=== PATIENT | female | born 1950 | race Caucasian/White ===

== ENCOUNTER 2016-09-26 22:01 | Emergency (ER) | payer OTHER ==
[~2016-09-26] VITALS: Ht 160 cm; Wt 93.0 kg
[~2016-09-26 22:01] MED LIST: METO25TA3 PO; MULTTAB58 PO; PRT/20 PO; SIMV10TA2 PO
[2016-09-26 22:04] VITALS: TEMP 36.6; Ht 160 cm; Wt 93.0 kg
[2016-09-26 22:36] LABS: HEMATOCRIT 38.3 % (37-47); MEAN CELL VOLUME 89.3 fL (80-100); MEAN CORPUSCULAR HGB CONC 34.7 g/dl (32-36); MEAN PLATELET VOLUME 9.7 fL (7.4-10.4); PLATELET COUNT 147 K/uL (130-400); RED BLOOD COUNT 4.29 M/uL (4.2-5.4); WHITE BLOOD COUNT 5.21 K/uL (4.8-10.8)
--- NOTE | 2016-09-26 22:38 | DIAGNOSTIC IMAGING REPORT ---
CHEST ONE VIEW PORTABLE CLINICAL HISTORY: Altered mental status. Weakness. COMPARISON STUDY: Chest radiograph April 17, 2015. FINDINGS: Lung volumes are normal. There is no pneumothorax or pleural effusion. Pulmonary vascularity is normal. Cardiomediastinal silhouette is normal. The appearance of the chest is unchanged. IMPRESSION: No acute cardiopulmonary findings. Electronically signed by: Miles Ly M.D. 09/26/2016 10:37 PM Dictated Date/Time: 09/26/2016 10:36 PM
[2016-09-26 22:48] LABS: BUN/CREATININE RATIO 18.8 (10-20); CALCIUM 8.9 mg/dl (8.5-10.1); CREATININE 0.76 mg/dl (0.60-1.20)
--- NOTE | 2016-09-26 23:00 | DIAGNOSTIC IMAGING REPORT ---
CT OF THE HEAD WITHOUT CONTRAST CLINICAL HISTORY: Altered mental status. COMPARISON STUDY: Head CT August 12, 2011. CT DOSE: 614.27 mGy.cm TECHNIQUE: Helical axial images of the head were obtained without IV contrast. Automated exposure control was utilized for the study. A dose lowering technique was utilized adhering to the principles of ALARA. FINDINGS: No acute intracranial hemorrhage, midline shift or mass effect is present. Ventricular system is normal. Basilar cisterns are patent. There are no extra-axial collections. Bowles-white differentiation is maintained. There are no findings to suggest acute dural sinus thrombosis or acute territorial infarct. There is no calvarial fracture. Visualized portions of the sinuses and mastoid air cells are clear. IMPRESSION: No acute intracranial findings. Electronically signed by: Miles Ly M.D. 09/26/2016 10:59 PM Dictated Date/Time: 09/26/2016 10:55 PM
[2016-09-26 23:27] LABS: BASO % 0.4 %; BASO ABS # 0.02 K/uL (0-0.2); COMPLETE YES; EOS % 1.3 %; IG% 0.2 %; LYMPH % 52.2 %; LYMPH ABS # 2.72 K/uL (1.2-3.4); MONO % 9.2 %; NEUT % 36.7 %
--- NOTE | 2016-09-26 23:41 | EMERGENCY ROOM VISIT NOTE ---
History Report prepared by Leann: Nini Davis Under the Supervision of: Dr. Baldemar Brower D.O. First contact with patient: 22:06 Chief Complaint: NEURO SYMPTOMS Stated Complaint: FELT SOMETHING PULL IN FACE/NECK/FLANK W/PAIN History of Present Illness The patient is a 65 year old female who presents to the Emergency Room with complaints of persistent right sided headache starting around 2044 today. The patient was sitting in a chair when she reached over for a cup. At that moment, she felt a pulling sensation in her right cheek and down the right side of her body. After the pulling sensation, she felt a stinging and burning pain where the pulling had been. She then started having pain in the back of her neck on the right side and the right side of her head. She called [facility] who told her to present to the ED. She is feeling improved now, but still has some pain in her head and neck. She denies any chest pain or SOB. She felt that her throat might be closing up, but she notes that she has a history of acid reflux. She recently had a Mohs surgery on her right cheek. Source of History: patient, spouse/significant other Onset: 2044 Position: head Quality: ache Timing: other (persistent) Associated Symptoms: + neck pain, No chest pain, No SOB Note: Pt reports pulling sensation in her right cheek and right side. Review of Systems See HPI for pertinent positives & negatives. A total of 10 systems reviewed and were otherwise negative. Past Medical & Surgical Medical Problems: (1) HTN (hypertension) Surgical Problems: (1) Status post Mohs surgery Family History Diabetes mellitus Gallbladder disease Heart disease Hypertension Social History Smoking Status: Never Smoker Alcohol Use: none Drug Use: none Marital Status: Housing Status: lives with significant other Occupation Status: retired Current/Historical Medications Scheduled Metoprolol Succinate (Toprol Xl), 25 MG PO HS Multiple Vitamin (Multivitamin), 1 TAB PO DAILY Pantoprazole (Protonix), 20 MG PO DAILY Simvastatin (Zocor), 10 MG PO HS Allergies Coded Allergies: Codeine (Verified Allergy, Intermediate, hallucinations, 09/26/16) Chlorhexidine (Verified Allergy, Unknown, RASH, 09/26/16) Physical Exam Vital Signs Date Time Temp Pulse Resp B/P (MAP) Pulse Ox O2 Delivery O2 Flow Rate FiO2 09/26/16 23:33 67 19 111/81 98 Room Air 09/26/16 22:28 66 09/26/16 22:04 36.6 70 18 152/83 98 Room Air Physical Exam CONSTITUTIONAL/VITAL SIGNS: Reviewed / noted above. GENERAL: Non-toxic in appearance. INTEGUMENTARY: Warm, dry, and [place]. HEAD: Normocephalic. EYES: without scleral icterus or trauma. ENT/OROPHARYNX: clear and moist. LYMPHADENOPATHY/NECK: Is supple without lymphadenopathy or meningismus. RESPIRATORY: Lungs clear and equal. CARDIOVASCULAR: Regular rate and rhythm. GI/ABDOMEN: Soft and nontender. No organomegaly or pulsatile mass. No rebound or guarding. Normal bowel sounds. EXTREMITIES: Warm and well perfused. BACK: No CVA tenderness. NEUROLOGICAL: Intact without focal deficits. PSYCHIATRIC: normal affect. MUSCULOSKELETAL: Normally developed with good muscle tone. Medical Decision & Procedures ER Provider Diagnostic Interpretation: X ray results and stated below per my interpretation and radiology interpretation. Radiology results as stated below per my review and radiologist interpretation: CHEST ONE VIEW PORTABLE CLINICAL HISTORY: Altered mental status. Weakness. COMPARISON STUDY: Chest radiograph April 17, 2015. FINDINGS: Lung volumes are normal. There is no pneumothorax or pleural effusion. Pulmonary vascularity is normal. Cardiomediastinal silhouette is normal. The appearance of the chest is unchanged. IMPRESSION: No acute cardiopulmonary findings. Electronically signed by: Miles Ly M.D. 09/26/2016 10:37 PM Dictated Date/Time: 09/26/2016 10:[address] OF THE HEAD WITHOUT CONTRAST CLINICAL HISTORY: Altered mental status. COMPARISON STUDY: Head CT August 12, 2011. CT DOSE: 614.27 mGy.cm TECHNIQUE: Helical axial images of the head were obtained without IV contrast. Automated exposure control was utilized for the study. A dose lowering technique was utilized adhering to the principles of ALARA. FINDINGS: No acute intracranial hemorrhage, midline shift or mass effect is present. Ventricular system is normal. Basilar cisterns are patent. There are no extra-axial collections. Bowles-white differentiation is maintained. There are no findings to suggest acute dural sinus thrombosis or acute territorial infarct. There is no calvarial fracture. Visualized portions of the sinuses and mastoid air cells are clear. IMPRESSION: No acute intracranial findings. Electronically signed by: Miles Ly M.D. 09/26/2016 10:59 PM Dictated Date/Time: 09/26/2016 10:55 PM Laboratory Results 09/26/16 22:20 Red Blood Count 4.29, Mean Corpuscular Volume 89.3, Mean Corpuscular Hemoglobin 31.0, Mean Corpuscular Hemoglobin Concent 34.7, Mean Platelet Volume 9.7, Neutrophils (%) (Auto) 36.7, Lymphocytes (%) (Auto) 52.2, Monocytes (%) (Auto) 9.2, Eosinophils (%) (Auto) 1.3, Basophils (%) (Auto) 0.4, Neutrophils # (Auto) 1.91, Lymphocytes # (Auto) 2.72, Monocytes # (Auto) 0.48, Eosinophils # (Auto) 0.07, Basophils # (Auto) 0.02 09/26/16 22:20 Test 09/26/16 22:20 White Blood Count 5.21 K/uL (4.8-10.8) Red Blood Count 4.29 M/uL (4.2-5.4) Hemoglobin 13.3 g/dL (12.0-16.0) Hematocrit 38.3 % (37-47) Mean Corpuscular Volume 89.3 fL (80-100) Mean Corpuscular Hemoglobin 31.0 pg (25-34) Mean Corpuscular Hemoglobin Concent 34.7 g/dl (32-36) Platelet Count 147 K/uL (130-400) Mean Platelet Volume 9.7 fL (7.4-10.4) Neutrophils (%) (Auto) 36.7 % Lymphocytes (%) (Auto) 52.2 % Monocytes (%) (Auto) 9.2 % Eosinophils (%) (Auto) 1.3 % Basophils (%) (Auto) 0.4 % Neutrophils # (Auto) 1.91 K/uL (1.4-6.5) Lymphocytes # (Auto) 2.72 K/uL (1.2-3.4) Monocytes # (Auto) 0.48 K/uL (0.11-0.59) Eosinophils # (Auto) 0.07 K/uL (0-0.5) Basophils # (Auto) 0.02 K/uL (0-0.2) RDW Standard Deviation 40.9 fL (36.4-46.3) RDW Coefficient of Variation 12.7 % (11.5-14.5) Immature Granulocyte % (Auto) 0.2 % Immature Granulocyte # (Auto) 0.01 K/uL (0.00-0.02) Anion Gap 4.0 mmol/L (3-11) Est Creatinine Clear Calc Drug Dose 78.9 ml/min Estimated GFR () 94.7 Estimated GFR (Non- 81.7 BUN/Creatinine Ratio 18.8 (10-20) Calcium Level 8.9 mg/dl (8.5-10.1) Laboratory results as stated above per my review. ED Course 2208: Previous medical records were reviewed. The patient was evaluated in room C10. A complete history and physical examination was performed. 2342: On reevaluation, the patient is resting comfortably. I discussed the results and findings with the patient. She verbalized agreement of the treatment plan. She was discharged home. Medical Decision Differential includes: Acute intracranial bleed, trauma, meningitis, encephalitis, increased intracranial pressure, mass or mass effect, facial or dental infection, temporal arteritis, CVA, TIA, acute hypertensive emergency, sinusitis, carbon monoxide exposure. This is a 65-year-old female who presents to the ED with a chief complaint of right-sided headache. The patient states that around 8:45 PM she felt a pulling sensation in the right side of her face that radiated down her neck and into her back. She then developed a right-sided headache. Her symptoms resolved subsequently and she now has a mild headache. The advice nurse was contacted and she was referred here. Her vital signs are stable. She is mildly hypertensive. This could be situational. Her physical exam was unremarkable. Neuro exam was also unremarkable. Blood work including a CBC and chemistry panel was unremarkable with exception of a BUN of 31. Chest x- ray did not show acute disease. A CT scan of the brain was also negative for acute disease. The patient was told results. The patient is felt to be stable for discharge. Medication Reconcilliation Current Medication List: was personally reviewed by me Blood Pressure Screening Patient's blood pressure: Elevated blood pressure Blood pressure disposition: Elevated BP felt to be situational Impression Primary Impression: Headache Scribe Attestation The scribe's documentation has been prepared under my direction and personally reviewed by me in its entirety. I confirm that the note above accurately reflects all work, treatment, procedures, and medical decision making performed by me. Departure Information Dispostion Home / Self-Care Referrals Rick Tang M.D. (PCP) Patient Instructions [facility] Additional Instructions Follow-up with your doctor for further care and evaluation in 1-2 days. Return to the emergency department for worsening or new symptoms or any concerns. You have been examined and treated today on an emergency basis only. This is not a substitute for, or an effort to provide, complete comprehensive medical care. It is impossible to recognize and treat all injuries or illnesses in a single emergency department visit. It is therefore important that you follow up closely with your doctor. Call as soon as possible for an appointment.
[2016-09-27 00:39] VITALS: BP 123/74; PULSE 71; O2SAT 99
== END 2016-09-27 00:43 | disposition home or self-care (01) ==
LOC: C.EDB 22:02 → C.EDC 09-27 00:43
DX: R51 Headache (principal); K21.9 Gastro-esophageal reflux disease without esophagitis; I10 Essential (primary) hypertension; Z83.3 Family history of diabetes mellitus; Z82.49 Family history of ischemic heart disease and other diseases of the circulatory system; Z79.899 Other long term (current) drug therapy